=== PATIENT | female | born 1985 | race Asian ===

== ENCOUNTER 2018-02-10 14:55 | Emergency (ER) | payer OTHER ==
[2018-02-10] MEDS: HYDROCODONE/APAP (5/325) TAB PO (15:40)
== END 2018-02-10 17:02 | disposition home or self-care (01) ==
LOC: FTE 14:55
DX: S59.901A Unspecified injury of right elbow, initial encounter (principal); S89.91XA Unspecified injury of right lower leg, initial encounter; W01.0XXA Fall on same level from slipping, tripping and stumbling without subsequent striking against object, initial encounter; Y92.512 Supermarket, store or market as the place of occurrence of the external cause
CPT/HCPCS: 29505; 73080-RT; 73562; 73610-RT; 99284-25